=== PATIENT | female | born 1950 | race Caucasian/White ===

== ENCOUNTER 2017-12-16 08:55 | Emergency (ER) | payer MEDICARE ==
--- NOTE | 2017-12-16 09:17 | ER Document Report ---
ED Medical Screen (RME) - General Chief Complaint: Urinary Problem Stated Complaint: PAINFUL URINATION Time Seen by Provider: 12/16/17 09:12 Mode of Arrival: Wheelchair Information source: Patient TRAVEL OUTSIDE OF THE [place] IN LAST 30 DAYS: No - HPI Patient complains to provider of: hematuria Onset: Yesterday - pt. states she has had blood in her urine and dysuria since yesterday - Related Data Allergies/Adverse Reactions: latex Allergy (Intermediate, Verified 12/16/17 09:10) Penicillins Allergy (Unknown, Verified 12/16/17 09:09) Sulfa (Sulfonamide Antibiotics) Allergy (Unknown, Verified 12/16/17 09:09) Past Medical History - Social History Chew tobacco use (# tins/day): No Frequency of alcohol use: None Drug Abuse: None Family history: Reviewed & Not Pertinent - Past Medical History Cardiac Medical History: Reports: Hx DVT, Hx Hypertension, Hx Pulmonary Embolism Renal/ Medical History: Denies: Hx Peritoneal Dialysis Psychiatric Medical History: Reports: Hx Bipolar Disorder, Hx Depression Past Surgical History: Reports: Hx Cholecystectomy, Hx Hysterectomy, Hx Orthopedic Surgery - hip replacement 2009, left arm. back x 3 - Immunizations Hx Diphtheria, Pertussis, Tetanus Vaccination: Yes Physical Exam - Vital signs Vitals: Temp Pulse Resp BP Pulse Ox 98.4 F 79 22 H 121/52 L 92 12/16/17 09:02 12/16/17 09:02 12/16/17 09:02 12/16/17 09:02 12/16/17 09:02 Course - Vital Signs Vital signs: Temp Pulse Resp BP Pulse Ox 98.4 F 79 22 H 121/52 L 92 12/16/17 09:02 12/16/17 09:02 12/16/17 09:02 12/16/17 09:02 12/16/17 09:02
--- NOTE | 2017-12-16 09:45 | ER Document Report ---
ED GI/ - General Chief Complaint: Urinary Problem Stated Complaint: PAINFUL URINATION Time Seen by Provider: 12/16/17 09:12 Mode of Arrival: Wheelchair Notes: 67-year-old female with past medical history as recorded who started last night to have some painful urination that was blood-tinged in the depends underwear. No complaints of nausea, vomiting, fevers, or back pain. Patient had a small kidney stone 1 in her past. Patient is accompanied by her family. TRAVEL OUTSIDE OF THE [place] IN LAST 30 DAYS: No - HPI Patient complains to provider of: Other - See above Onset: Other - See above Timing/Duration: Gradual Quality of pain: Burning Severity at maximum: Mild Severity in ED: Mild, None Pain Level: 0 Location: Other - See above Sexual history: Inactive Associated symptoms: Other - See above Exacerbated by: Other - See above Relieved by: Denies Similar symptoms previously: Yes Recently seen / treated by doctor: No - Related Data Allergies/Adverse Reactions: latex Allergy (Intermediate, Verified 12/16/17 09:10) Penicillins Allergy (Unknown, Verified 12/16/17 09:09) Sulfa (Sulfonamide Antibiotics) Allergy (Unknown, Verified 12/16/17 09:09) Past Medical History - General Information source: Patient - Social History Smoking Status: Never Smoker Chew tobacco use (# tins/day): No Frequency of alcohol use: None Drug Abuse: None Family History: None Patient has suicidal ideation: No Patient has homicidal ideation: No - Past Medical History Cardiac Medical History: Reports: Hx DVT, Hx Hypertension, Hx Pulmonary Embolism Renal/ Medical History: Denies: Hx Peritoneal Dialysis Psychiatric Medical History: Reports: Hx Bipolar Disorder, Hx Depression Past Surgical History: Reports: Hx Cholecystectomy, Hx Hysterectomy, Hx Orthopedic Surgery - hip replacement 2009, left arm. back x 3 - Immunizations Hx Diphtheria, Pertussis, Tetanus Vaccination: Yes Hx Pneumococcal Vaccination: 10/23/14 Review of Systems - Review of Systems Constitutional: denies: Fever EENT: denies: Eye discharge, Nose discharge Cardiovascular: denies: Chest pain, Palpitations Respiratory: denies: Short of breath Gastrointestinal: denies: Vomiting Musculoskeletal: denies: Leg swelling Skin: Other - no hives. denies: Rash Neurological/Psychological: Other - no slurred speech -: Yes All other systems reviewed and negative Physical Exam - Vital signs Vitals: Temp Pulse Resp BP Pulse Ox 98.4 F 79 22 H 121/52 L 92 12/16/17 09:02 12/16/17 09:02 12/16/17 09:02 12/16/17 09:02 12/16/17 09:02 Notes: Reviewed vital signs and nursing note as charted by RN. CONSTITUTIONAL: Alert and oriented and responds appropriately to questions. Well -appearing; well-nourished HEAD: Normocephalic; atraumatic EYES: PERRL ENT: Moist mucous membranes; pharynx without lesions noted NECK: Supple without meningismus; non-tender CARD: Regular rate and rhythm; no murmurs RESP: Normal chest excursion without splinting or tachypnea; breath sounds clear and equal bilaterally ABD/GI: Normal bowel sounds; non-distended; soft, non-tender currently to deep palpation of all 4 quadrants of the abdomen. No abdominal bruits or palpable masses BACK: The back appears normal and is non-tender to palpation, there is no CVA tenderness EXT: Normal ROM in all joints; non-tender to palpation; no edema SKIN: No acute lesions noted NEURO: Moves all extremities equally; Motor and sensory function intact PSYCH: The patient's mood and manner are appropriate. Grooming and personal hygiene are appropriate. Course - Re-evaluation Re-evalutation: 12/16/17 09:44 Given the history and physical examination we will obtain basic labs, hemoglobin level, and a catheterized urine analysis. I would like to initially assess for possible urinary tract infection. Given no flank pain or vomiting, I do believe a kidney stone to be less likely. Family states for a few months now the patient has had some increased confusion above baseline. She is being followed by the primary care physician and has recently received an unremarkable CT scan of the head according to the family at an outside facility. Patient currently has no complaints of headaches and no focal neurological deficits. 12/16/17 10:37 Hemoglobin stable. Urinalysis as recorded. I provided a gram of Rocephin. Given the current sensitivities, I will start the patient on Keflex with urine culture pending. Strict return precautions have been explained. - Vital Signs Vital signs: Temp Pulse Resp BP Pulse Ox 98.4 F 79 22 H 121/52 L 92 12/16/17 09:02 12/16/17 09:02 12/16/17 09:02 12/16/17 09:02 12/16/17 09:02 - Laboratory Result Diagrams: 12/16/17 10:06 12/16/17 10:06 Laboratory results interpreted by me: 12/16/17 12/16/17 12/16/17 10:06 10:06 10:18 Plt Count 141 L Monocytes % 14.5 H Potassium 3.1 L Glucose 112 H AST 59 H Urine Protein >=500 H Urine Blood LARGE H Urine Bilirubin SMALL H Urine Urobilinogen 4.0 H Ur Leukocyte Esterase LARGE H Discharge - Discharge Clinical Impression: Hematuria Qualifiers: Hematuria type: unspecified type Qualified Code(s): R31.9 - Hematuria, unspecified Urinary tract infection Qualifiers: Urinary tract infection type: acute cystitis Hematuria presence: with hematuria Qualified Code(s): N30.01 - Acute cystitis with hematuria Condition: Good Disposition: HOME, SELF-CARE Instructions: Urinary Tract Infection ([facility]) Additional Instructions: Come back immediately with any increased pain, lightheadedness, dizziness, fever , back pain, vomiting, or any other acute problems. Please take the antibiotics as prescribed and please follow-up with your primary care physician for reassessment of the urine analysis as well as the urine culture. Prescriptions: Cephalexin Monohydrate [Keflex 500 mg Capsule] 500 mg PO Q6H 7 Days #28 capsule
[2017-12-16 10:14] LABS: ABSOLUTE EOSINOPHILS # (AUTO) 0.1 10^3/uL (0.0-0.6); ABSOLUTE MONOCYTES (AUTO) 0.9 10^3/uL (0.1-1.4); BASOPHILS % (AUTO) 0.8 % (0-2); EOSINOPHILS % (AUTO) 1.7 % (0-6); HEMATOCRIT 36.9 % (36.0-47.0); HEMOGLOBIN 12.8 g/dL (12.0-15.5); LYMPHOCYTES % (AUTO) 32.9 % (13-45); MEAN CORPUSCULAR HEMOGLOBIN 33.2 pg (27.0-33.4); MEAN CORPUSCULAR HGB CONC 34.6 g/dL (32.0-36.0); MEAN CORPUSCULAR VOLUME 96 fl (80-97); MONOCYTES % (AUTO) 14.5 % (3-13); PLATELET COUNT 141 10^3/uL (150-450); RED BLOOD COUNT 3.85 10^6/uL (3.72-5.28); RED CELL DISTRIBUTION WIDTH 13.5 % (11.5-14.0); SEGMENTED NEUTROPHILS % (AUTO) 50.1 % (42-78); TOTAL CELLS COUNTED % (AUTO) 100 %
[2017-12-16 10:30] LABS: ALANINE AMINOTRANSFERASE 24 U/L (9-52); ALBUMIN 3.7 g/dL (3.5-5.0); ALKALINE PHOSPHATASE 113 U/L (38-126); ANION GAP 13 (5-19); ASPARTATE AMINO TRANSFERASE 59 U/L (14-36); BILIRUBIN,DIRECT 0.4 mg/dL (0.0-0.4); BILIRUBIN,TOTAL 1.2 mg/dL (0.2-1.3); BLOOD UREA NITROGEN 18 mg/dL (7-20); CALCIUM 9.3 mg/dL (8.4-10.2); CARBON DIOXIDE 26 mmol/L (22-30); CHLORIDE 101 mmol/L (98-107); GLUCOSE 112 mg/dL (75-110); POTASSIUM 3.1 mmol/L (3.6-5.0); SODIUM 139.6 mmol/L (137-145); TOTAL PROTEIN 7.5 g/dL (6.3-8.2)
[2017-12-16 10:33] LABS: APPEARANCE,URINE CLOUDY; BILIRUBIN,URINE SMALL (NEGATIVE); COLOR,URINE AMBER; GLUCOSE, URINE NEGATIVE (NEGATIVE); KETONES,URINE NEGATIVE (NEGATIVE); LEUKOCYTE ESTERASE,URINE LARGE (NEGATIVE); NITRITE,URINE NEGATIVE (NEGATIVE); PROTEIN,URINE >=500 mg/dL (NEGATIVE); URINE SPECIFIC GRAVITY 1.024
[2017-12-16] MEDS ORDERED: CEFTRIAXONE 1 GM/D5W RTU 1 GM/50 ML RTUPB IV ONE (10:36)
[2017-12-16] MEDS ORDERED: CEFTRIAXONE INJ 1000 MG VIAL IM ONE (10:55)
[2017-12-16] MEDS ORDERED: LIDOCAINE 1% INJ (10 MG/ML) 10 ML MDV INJ ONE (10:59)
[2017-12-16] MEDS ORDERED: LIDOCAINE 1% INJ-PF (10 MG/ML) 30 ML SDV ONE (11:00)
[2017-12-16 11:11] VITALS: BP 120/64
== END 2017-12-16 11:11 | disposition home or self-care (01) ==
LOC: ER 08:55
DX: N30.01 Acute cystitis with hematuria (principal); I10 Essential (primary) hypertension; Z87.442 Personal history of urinary calculi; Z91.040 Latex allergy status; Z88.0 Allergy status to penicillin; Z88.2 Allergy status to sulfonamides
CPT/HCPCS: 99283; 96372; 51701; 36415; 87086; 85025; 87088; 80053; 81001; 87186; J3490; J0696

== ENCOUNTER 2018-01-12 13:22 | Emergency (ER) | payer MEDICARE ==
[2018-01-12] MEDS ORDERED: ACETAMINOPHEN WITH CODEINE #3 TABLET PO ONE (14:13)
--- NOTE | 2018-01-12 14:13 | ER Document Report ---
ED Medical Screen (RME) - General Chief Complaint: Fall Injury Stated Complaint: FALL/LEG PAIN Time Seen by Provider: 01/12/18 14:03 Mode of Arrival: Wheelchair Information source: Patient, Relative Notes: 67-year-old female history of multiple falls presents with complaints of left hip pain, it is noted that it was replaced 10 years ago patient fell recently has been complaining of pain I have greeted and performed a rapid initial assessment of this patient. A comprehensive ED assessment and evaluation of the patient, analysis of test results and completion of the medical decision making process will be conducted by additional ED providers. PHYSICAL EXAMINATION: GENERAL: Well-appearing, well-nourished and in no acute distress. HEAD: Atraumatic, normocephalic. EYES: Pupils equal round extraocular movements intact, conjunctiva are normal. ENT: Nares patent NECK: Normal range of motion LUNGS: No respiratory distress Musculoskeletal: Limited range of motion of left hip NEUROLOGICAL: Normal speech PSYCH: Normal mood, normal affect. SKIN: Warm, Dry, normal turgor, no rashes or lesions noted. TRAVEL OUTSIDE OF THE [place] IN LAST 30 DAYS: No - Related Data Allergies/Adverse Reactions: latex Allergy (Intermediate, Verified 01/12/18 13:26) Penicillins Allergy (Unknown, Verified 01/12/18 13:26) Sulfa (Sulfonamide Antibiotics) Allergy (Unknown, Verified 01/12/18 13:26) Past Medical History - Social History Frequency of alcohol use: None Drug Abuse: None Family history: Reviewed & Not Pertinent - Past Medical History Cardiac Medical History: Reports: Hx DVT, Hx Hypertension, Hx Pulmonary Embolism Renal/ Medical History: Denies: Hx Peritoneal Dialysis Psychiatric Medical History: Reports: Hx Bipolar Disorder, Hx Depression Past Surgical History: Reports: Hx Cholecystectomy, Hx Hysterectomy, Hx Orthopedic Surgery - hip replacement 2009, left arm. back x 3 - Immunizations Hx Diphtheria, Pertussis, Tetanus Vaccination: Yes Physical Exam - Vital signs Vitals: Temp Pulse Resp BP Pulse Ox 98.2 F 80 20 121/50 L 95 01/12/18 13:36 01/12/18 13:36 01/12/18 13:36 01/12/18 13:36 01/12/18 13:36 Course - Vital Signs Vital signs: Temp Pulse Resp BP Pulse Ox 98.2 F 80 20 121/50 L 95 01/12/18 13:36 01/12/18 13:36 01/12/18 13:36 01/12/18 13:36 01/12/18 13:36
--- NOTE | 2018-01-12 15:19 | ER Document Report ---
ED Fall - General Mode of Arrival: Wheelchair Information source: Patient, Relative TRAVEL OUTSIDE OF THE [place] IN LAST 30 DAYS: No - HPI Patient complains to provider of: Left hip pain secondary to fall Occurred: Yesterday Where: Home, Indoors Associated symptoms: Other - see notes above Location of injury/pain: Hip - left <ROSALINE MCDUFFIE - Last Filed: 01/12/18 18:21> <DEANNE WARD - Last Filed: 01/12/18 21:05> - General Chief Complaint: Fall Injury Stated Complaint: FALL/LEG PAIN Time Seen by Provider: 01/12/18 14:03 Notes: 67 year old female with history of progressive supranuclear palsy presents to the ED accompanied by her who is complaining that the patient has been having increased falls and some confusion since September 2017. Patient was seen by Dr. Horton, her PCP, who initially treated the patient for vertigo and later had her follow up with neurology. Patient fell yesterday and began complaining of left hip pain. Patient has ambulated since the fall and her level of confusion has not changed. Patient is currently on Pradaxa secondary to having blood clots many years ago. Neurologist: Dr. Patel (ROSALINE MCDUFFIE) - Related data Allergies/Adverse Reactions: latex Allergy (Intermediate, Verified 01/12/18 13:26) Penicillins Allergy (Unknown, Verified 01/12/18 13:26) Sulfa (Sulfonamide Antibiotics) Allergy (Unknown, Verified 01/12/18 13:26) Past Medical History - General Information source: Patient, Relative - Social History Smoking Status: Never Smoker Frequency of alcohol use: None Drug Abuse: None Family History: None Patient has suicidal ideation: No Patient has homicidal ideation: No - Past Medical History Cardiac Medical History: Reports: Hx DVT, Hx Hypertension, Hx Pulmonary Embolism Renal/ Medical History: Denies: Hx Peritoneal Dialysis Psychiatric Medical History: Reports: Hx Bipolar Disorder, Hx Depression Past Surgical History: Reports: Hx Cholecystectomy, Hx Hysterectomy, Hx Orthopedic Surgery - hip replacement 2008, left arm. back x 3 - Immunizations Hx Diphtheria, Pertussis, Tetanus Vaccination: Yes Hx Pneumococcal Vaccination: 10/23/14 <ROSALINE MCDUFFIE - Last Filed: 01/12/18 18:21> Review of Systems - Review of Systems Constitutional: No symptoms reported EENT: No symptoms reported Musculoskeletal: See HPI Neurological/Psychological: Confusion - Baseline per . -: Yes All other systems reviewed and negative <DEANNE WARD - Last Filed: 01/12/18 21:05> Physical Exam <ROSALINE MCDUFFIE - Last Filed: 01/12/18 18:21> <DEANNE WARD - Last Filed: 01/12/18 21:05> - Vital signs Vitals: Temp Pulse Resp BP Pulse Ox 98.2 F 80 20 121/50 L 95 01/12/18 13:36 01/12/18 13:36 01/12/18 13:36 01/12/18 13:36 01/12/18 13:36 - Notes Notes: GENERAL: Alert, interacts well. No acute distress. HEAD: Normocephalic, atraumatic. EYES: Pupils equal, round, and reactive to light. Extraocular movements intact. ENT: Oral mucosa moist, tongue midline. NECK: Full range of motion. Supple. Trachea midline. LUNGS: Clear to auscultation bilaterally, no wheezes, rales, or rhonchi. No respiratory distress. HEART: Regular rate and rhythm. No murmurs, gallops, or rubs. ABDOMEN: Soft, non-tender. Non-distended. Bowel sounds present in all 4 quadrants. EXTREMITIES: Moves all 4 extremities spontaneously. No edema, radial, and dorsalis pedis pulses 2/4 bilaterally. No cyanosis. Well healed incision to the left lower extremity. No tenderness to palpation over the left greater trochanter. No swelling or ecchymosis. No pain with log roll to the left lower extremity. Pain with elevation of left lower extremity. No shortening or rotation. Sensation intact distally. Able to bend at waist. NEUROLOGICAL: Alert. Normal speech. At baseline according to . PSYCH: Normal affect, normal mood. SKIN: Warm, dry, and normal turgor. No rashes or lesions noted. (ROSALINE MCDUFFIE) Pleasant, oriented to person and place but not time. Thinks Mark Gutierrez is still present. (DEANNE WARD) Course - Laboratory Result Diagrams: 01/12/18 15:27 01/12/18 15:27 <ROSALINE MCDUFFIE - Last Filed: 01/12/18 18:21> - Laboratory Result Diagrams: 01/12/18 15:27 01/12/18 15:27 <DEANNE WARD - Last Filed: 01/12/18 21:05> - Re-evaluation Re-evalutation: 01/12/18 17:16 X-ray shows that the patient is osteoporotic, on the frog-leg view there is some heterotopic bone along the proximal left femoral metaphysis but there is no fracture and no lucency around the prosthesis worrisome for loosening of hardware. Patient is encouraged to follow-up with her primary care physician to see if she can stop taking the dabigatran. Given her falls this causes a significantly increased risk of intracranial hemorrhage. (DEANNE WARD) - Vital Signs Vital signs: Temp Pulse Resp BP Pulse Ox 98.7 F 73 18 109/54 L 92 01/12/18 18:43 01/12/18 18:43 01/12/18 18:43 01/12/18 18:43 01/12/18 18:43 - Laboratory Laboratory results interpreted by me: 01/12/18 01/12/18 15:27 15:27 Plt Count 112 L Sodium 134.6 L Potassium 3.4 L Total Bilirubin 2.3 H Direct Bilirubin 1.0 H AST 64 H Albumin 3.3 L Discharge <ROSALINE MCDUFFIE - Last Filed: 01/12/18 18:21> <DEANNE WARD - Last Filed: 01/12/18 21:05> - Discharge Clinical Impression: Left hip pain Fall at home Qualifiers: Encounter type: initial encounter Qualified Code(s): W19.XXXA - Unspecified fall, initial encounter Condition: Stable Disposition: HOME, SELF-CARE Additional Instructions: Today there is no evidence of a hip fracture. Please follow-up with your primary care physician as an outpatient. Please specifically ask if you can stop taking the dabigatran, this is also called Pradaxa, it is a blood thinner that significantly increases your risk of bleeding into your brain should you hit your head when you fall. Your primary care physician will need to talk to you about the risks of bleeding as compared to the risks of developing another blood clot. Do not stop taking this medication on your own. Referrals: HOMA DE LA TORRE MD [Primary Care Provider] - Follow up as needed Scribe Attestation: 01/12/18 21:04 I personally performed the services described in the documentation, reviewed and edited the documentation which was dictated to the scribe in my presence, and it accurately records my words and actions. (DEANNE WARD) Scribe Documentation - Scribe Written by Jorge Luis:: Jorge Luis Mccain, 01/12/2018 1829 acting as scribe for :: Queenie <ROSALINE MCDUFFIE - Last Filed: 01/12/18 18:21>
[2018-01-12 15:44] LABS: ABSOLUTE EOSINOPHILS # (AUTO) 0.1 10^3/uL (0.0-0.6); ABSOLUTE LYMPHOCYTES (AUTO) 2.7 10^3/uL (0.5-4.7); ABSOLUTE MONOCYTES (AUTO) 0.8 10^3/uL (0.1-1.4); ABSOLUTE NEUT (AUTO) 3.5 10^3/uL (1.7-8.2); BASOPHILS % (AUTO) 0.7 % (0-2); EOSINOPHILS % (AUTO) 1.4 % (0-6); HEMATOCRIT 37.9 % (36.0-47.0); LYMPHOCYTES % (AUTO) 37.7 % (13-45); MEAN CORPUSCULAR HEMOGLOBIN 33.1 pg (27.0-33.4); MEAN CORPUSCULAR HGB CONC 34.2 g/dL (32.0-36.0); MEAN CORPUSCULAR VOLUME 97 fl (80-97); MONOCYTES % (AUTO) 11.1 % (3-13); PLATELET COUNT 112 10^3/uL (150-450); RED BLOOD COUNT 3.91 10^6/uL (3.72-5.28); RED CELL DISTRIBUTION WIDTH 13.5 % (11.5-14.0); SEGMENTED NEUTROPHILS % (AUTO) 49.1 % (42-78); TOTAL CELLS COUNTED % (AUTO) 100 %
[2018-01-12 16:01] LABS: ALANINE AMINOTRANSFERASE 23 U/L (9-52); ALBUMIN 3.3 g/dL (3.5-5.0); ALKALINE PHOSPHATASE 111 U/L (38-126); ANION GAP 10 (5-19); ASPARTATE AMINO TRANSFERASE 64 U/L (14-36); BILIRUBIN,TOTAL 2.3 mg/dL (0.2-1.3); BLOOD UREA NITROGEN 15 mg/dL (7-20); CARBON DIOXIDE 24 mmol/L (22-30); CHLORIDE 101 mmol/L (98-107); GLUCOSE 92 mg/dL (75-110); POTASSIUM 3.4 mmol/L (3.6-5.0); SODIUM 134.6 mmol/L (137-145); TOTAL PROTEIN 7.7 g/dL (6.3-8.2)
--- NOTE | 2018-01-12 17:06 | RADIOLOGY REPORT (SQ) ---
EXAM DESCRIPTION: HIP LEFT 2-3 VIEWS COMPLETED DATE/TIME: 01/12/2018 3:17 pm REASON FOR STUDY: fall, left hip only COMPARISON: None. NUMBER OF VIEWS: Two views. TECHNIQUE: AP and frog-leg view of the left hip. LIMITATIONS: None. FINDINGS: MINERALIZATION: Osteoporotic LEFT HIP: No fracture or dislocation. Patient has a left total hip replacement with acetabular compo nent anchored with screws. On the frog-leg view, there is some heterotopic bone along the proximal l eft femoral metaphysis. No fracture of the left proximal femur along the prosthesis. No lucency jennifer und the prosthesis worrisome for loosening of hardware. RIGHT HIP: No fracture or dislocation. No worrisome bone lesions. SOFT TISSUES: No findings. OTHER: Lower lumbar fusion IMPRESSION: Osteopenic. No left hip fracture. Left hip replacement in good alignment. TECHNICAL DOCUMENTATION: JOB ID: [id number] [employer]- All Rights Reserved Reading location - IP/workstation name: [email or web address]
[2018-01-12 18:51] VITALS: BP 109/54
== END 2018-01-12 18:51 | disposition home or self-care (01) ==
LOC: ER 13:22
DX: M25.552 Pain in left hip (principal); W19.XXXA Unspecified fall, initial encounter; Y92.009 Unspecified place in unspecified non-institutional (private) residence as the place of occurrence of the external cause; I10 Essential (primary) hypertension; Z91.040 Latex allergy status; Z88.0 Allergy status to penicillin; Z88.2 Allergy status to sulfonamides; Z86.718 Personal history of other venous thrombosis and embolism; Z86.711 Personal history of pulmonary embolism; Z90.49 Acquired absence of other specified parts of digestive tract; Z90.710 Acquired absence of both cervix and uterus
CPT/HCPCS: 99283; 36415; 85025; 80053; 73502; A9270

== ENCOUNTER → 2018-04-26 | Outpatient (CLI) | payer MEDICARE ==
--- NOTE | 2018-04-26 10:23 | ST Modified Barium Swallow ---
Recommendation - Recommendations Recommendations: Recommend no straws. Flash penetration noted on thin liquids via straw sips only. 3-4 second swallow delay noted on solid PO trials. No diet change recommendations at this time. Medical Diagnoses - Medical Diagnoses Medical Diagnosis Description & ICD-10 Code(s): R13.13, pharyngeal dysphagia Other Medical Diagnoses/Co-Morbidities: Per patient report: Alzheimers disease. Per physician note: progressive supranuclear palsy. ST Modified Barium Swallow - General Date: 04/26/18 Risks/Precautions: Falls Date of Onset: 03/15/18 - Approximate onset date, per patient report. Reason for Referral: Recurrent pneumonia. Occasional globus sensation. - History History obtained from: Patient -: Medical - Patient reports she was diagnosed with progressive supranuclear palsy 6 weeks ago. Patient reports pneumonia 2 weeks ago, and again 5 weeks prior; pneumonia is recurrent. Patient reports occasional globus sensation, and avoids soups. Patient reports a diagnosis of alzheimers disease and a previous shoulder surgery; unable to report any other relevant medical history. Medications: Patient unable to report medications. Allergies: Per patient report: penicillin and sulfa - Functional Status Prior Functional Status: INDEPENDENT: feeding - Independent Current Functional Limitations: feeding - Aspiration precautions - Subjective Patient/caregiver goal(s): safe swallow, r/o aspiration Cognitive-Linguistic Function: Mildly Impaired Speech Intelligibility: Reduced intelligibility Current Nutritional Means: PO Current PO diet: Regular Current symptoms: Pneumonia, c/o Globus sensation Pain: Patient reports, 0/5 - Objective Assessment: Upright, Left Lateral - Food Trials Used Food trials used: Thin liquids, Pureed, Regular The patient: Was Able to Self Feed, via cup, via spoon - Oral-Motor Skills Dentition: Partial - Assessment Oral prep: Normal Labial closure: Adequate Leakage: None Mastication: Lengthy, Adequate Lingual Movement: Normal Oral stage: Normal for this Procedure - Pharyngeal Stage Initiation of Pharyngeal Stage Reflex: Delayed Reflex Delay Time (Seconds): 4 - With solid trials only Decreased laryngeal elevation: No Reduced Velopharyngeal Closure: no Reduced pressure generation: No reduced tongue-based retraction: No Pre-swallow pooling in valleculae: Moderate - For solid trials only Pre-Swallow pooling in pyriforms: None Reduced Thyro-Hyoid approximation: No Reduced epiglottic excursion: No Reduced pharyngeal peristalsis/contraction: No Post-swallow residulas vallecular: None Post-Swallow residuals in pyriforms: None Post-Swallow Residuals: no residuals Reduced Cricopharyngeal opening: No - Fall Risk Assessment Medications/Conditions that increase fall risks include: Antidepressants, sedatives, anti-arrhythmic, diuretic, benzodiazipenes, neuroleptics. BP regulation problems, cardiac problems, balance or gait deficits, neurological problems. Is patient considered at risk for falls: yes Fall Risk Actions Taken: No action needed - Behavioral Observations During evaluation process patient: was cooperative, able to answer questions, provided medical history - Treatment / Educational Needs: Treatment/Education Needs: Treatment consisted of patient education on the role of the Speech Pathologist. Patient's plan of care and golas were communicated as well as scheduling and attendance policies. Recommendations for initial home program were shared. Patient demonstrated understanding and verbalized agreement. - Impression/Summary Laryngeal Penetration: Flash, during swallow Consistency: Thin - With straw sips only Tracheal Aspiration: no Patient presents with: Normal swallow at eval Risk of Aspiration: Minimal Risk of nutritional compromise: None Evaluation and Findings: PO trials of thin liquids, pureed and regular consistency administered. No penetration or aspiration noted on thin liquids via cup sips; flash penetration noted on thin liquids via straw. With pureed and solid consistencies, patient demonstrated up to 4-second delay in swallow initiation. Moderate pre-swallow pooling in the valeculae noted with solid trials. Patient was able to clear all material with a single swallow; no dry swallow or liquid wash needed. Recommend no diet changes, but for patient to avoid use of straws. - Recommendations NPO: no Solid diet recommendations: Regular Liquid Diet Modification: Thin - No straws Strict aspiration precautions: No Pt/Family education and followup with MD: Yes Dysphagia therapy with [employer]IA [employer]ANNER: no Recommended techniques: Fully Upright During Meal, Small Bites and Sips, Alternate Bites/Sips Supervision: Independent Information, Precautions and Recommendations: Patient (Written), Patient (Verbal ) - Time Total Time: 30 - Plan of Care Strategies to optimize patient understanding include:: ongoing assessment of educational needs, implementation of educational strategies, and re-education. - - -: Thank you for the opportunity to work with this patient and his/her family. Should you have any questions about this patient's plan or progress, I can be reached at [phone]. Charge G Code? - - -: Yes ST F.L. Impairment Category - Rationale Based On Rationale Based On: Clin Find., Obj Measures - Swallowing Current G8996: CI 1-19% Impaired Goal G8997: CI 1-19% Impaired Discharge G8998: CI 1-19% Impaired
--- NOTE | 2018-04-26 10:32 | RADIOLOGY REPORT (SQ) ---
EXAM DESCRIPTION: ROBERTAIE SWALLOW COMPLETED DATE/TIME: 04/26/2018 8:23 am REASON FOR STUDY: DYSPHAGIA (R13.13) R13.13 DYSPHAGIA, PHARYNGEAL PHASE recurrent pneumonias, cough ing with meals COMPARISON: None. TECHNIQUE: Videofluoroscopic swallowing examination was performed in conjunction with speech patholo gy. Videofluoroscopic imaging was obtained and reviewed and these are the findings: RADIATION DOSE: 1 minutes 29 seconds of fluoroscopy was used. 1 images saved to PACS. LIMITATIONS: None FINDINGS: The patient was brought into the fluoro room and placed upright on a modified barium swall ow chair. The patient was then given multiple consistencies mixed with barium to swallow under live fluoroscopic video guidance. According to the Speech Pathologist there was trace laryngeal penetrati on. No aspiration. IMPRESSION: TRACE LARYNGEAL PENETRATION WITH THIN LIQUIDS. NO ASPIRATION SEEN.PLEASE SEE SPEECH PAT HOLOGIST REPORT FOR OTHER FINDINGS AND RECOMMENDATIONS. COMMENT: Quality ID [id number]: Final reports for procedures using fluoroscopy that document radiation exp osure indices, or exposure time and number of fluorographic images (if radiation exposure indices are not available) TECHNICAL DOCUMENTATION: JOB ID: [id number] [employer]- All Rights Reserved Reading location - IP/workstation name: [email or web address]
== END ==
LOC: RAD 07:10
PROVIDERS: ATTEND Nurse Practitioner
DX: R13.13 Dysphagia, pharyngeal phase (principal); G23.1 Progressive supranuclear ophthalmoplegia [Steele-Richardson-Olszewski]; G30.9 Alzheimer's disease, unspecified; F02.80 Dementia in other diseases classified elsewhere, unspecified severity, without behavioral disturbance, psychotic disturbance, mood disturbance, and anxiety
CPT/HCPCS: 74230; 92611; G8996; G8997; G8998

== ENCOUNTER 2018-08-15 17:17 | Emergency (ER) | payer MEDICARE ==
[~2018-08-15 17:17] MED LIST: ETOMIDATE INJ/PF 20 MG/10 ML SDV IV ONE; PROPOFOL 1,000 MG/100 ML INFUS..BTL IV ONE
[2018-08-15] MEDS ORDERED: NORMAL SALINE 1000 ML 1,000 ML IV ONE ×2 (17:26→18:31)
[2018-08-15] MEDS ORDERED: ETOMIDATE INJ/PF 20 MG/10 ML SDV IV ONE (17:28)
[2018-08-15] MEDS ORDERED: ROCURONIUM BROMIDE INJ 50 MG/5 ML VIAL IV ONE ×2 (17:29→18:01)
--- NOTE | 2018-08-15 17:29 | ER Document Report ---
ED General - General Stated Complaint: POSSIBLE SEIZURE Time Seen by Provider: 08/15/18 17:26 Notes: Patient is a 67-year-old female that presents to the emergency department for chief complaint of seizure. Patient is unresponsive upon presentation, history provided by EMS, patient apparently had a tonic-clonic generalized seizure, lasting approximately up to 10-15 minutes, upon arrival she was given 4 mg of intranasal Versed, without stoppage of the seizure, she was then given 2 mg of IV Ativan, which stopped the tonic-clonic activity, the patient then was unresponsive. She was transported to the emergency department, no other history obtainable at this time. Family History: Reviewed and noncontributory for presenting illness Allergies: Reviewed, see documented allergy list. REVIEW OF SYSTEMS: Not obtainable at this time as the patient is unresponsive PHYSICAL EXAMINATION: Vital signs reviewed, nursing noted reviewed. GENERAL: Patient is unresponsive at this time, GCS of 7. HEAD: Atraumatic, normocephalic. EYES: Pupils are equal and reactive, patient not following commands, horizontal nystagmus noted bilaterally ENT: nares patent, oropharynx clear without exudates. Moist mucous membranes. NECK: Normal range of motion, supple without lymphadenopathy LUNGS: Shallow breathing, agonal breathing, lungs are clear to auscultation bilaterally HEART: Regular rate and rhythm without murmurs ABDOMEN: Soft, not apparently tender, normoactive bowel sounds. No rebound, guarding, or rigidity. No masses appreciated. EXTREMITIES: No spontaneous limb movement at this time, slight trace edema noted bilaterally in the lower extremities NEUROLOGICAL: GCS 7, not following commands, will withdrawal to noxious stimuli PSYCH: Unresponsive SKIN: Warm, Dry, normal turgor, no rashes or lesions noted on exposed skin TRAVEL OUTSIDE OF THE [place] IN LAST 30 DAYS: No - Related Data Allergies/Adverse Reactions: latex Allergy (Intermediate, Verified 08/15/18 18:23) Penicillins Allergy (Unknown, Verified 08/15/18 18:23) Sulfa (Sulfonamide Antibiotics) Allergy (Unknown, Verified 08/15/18 18:23) Past Medical History - Social History Smoking Status: Unknown if Ever Smoked Family History: None - Past Medical History Cardiac Medical History: Reports: Hx DVT, Hx Hypertension, Hx Pulmonary Embolism Renal/ Medical History: Denies: Hx Peritoneal Dialysis Psychiatric Medical History: Reports: Hx Bipolar Disorder, Hx Depression Past Surgical History: Reports: Hx Cholecystectomy, Hx Hysterectomy, Hx Orthopedic Surgery - hip replacement 2009, left arm. back x 3 - Immunizations Hx Diphtheria, Pertussis, Tetanus Vaccination: Yes Hx Pneumococcal Vaccination: 10/23/14 Physical Exam - Vital signs Vitals: Resp Pulse Ox 21 H 95 08/15/18 17:20 08/15/18 17:20 Course - Re-evaluation Re-evalutation: Patient seen and examined vital signs reviewed. Upon arrival the patient was unresponsive, GCS of 7, airway was protected, patient was intubated, using video laryngoscopy, patient vital signs stable throughout intubation, post intubation., Patient was placed on propofol infusion, patient was waking up in the ventilator over time, moving limbs, and seeming more purposeful. Laboratory data and imaging were ordered as appropriate for the patient's presenting symptoms and complaint, with consideration of any critical or life threatening conditions that may be associated with their obtained history and exam as noted above. Blood work was reviewed, patient's lactic acid was 9.5, suspected from her prolonged seizure activity, and not sepsis. Given IV fluids, continued on propofol infusion The patient was re-evaluated and was stable on the ventilator, no further seizure activity, she was moving limbs Evaluation was most consistent with status epilepticus, acute respiratory failure, lactic acidosis Results were discussed with the patient family at this point after careful consideration I feel that that patient should be transferred to [facility] due to need for neurology evaluation, and neuro ICU evaluation. This was discussed with the patient family that it is in the best interest for their care to be transferred, the risks and benefits of transfer were discussed, including but not limited to clinical deterioration during transport, respiratory distress, and potential for traumatic injuries. Patient family agreed with this plan of care. Case discussed with Dr. Mosquera, the rail setter who accepted the patient to their ICU. Air transport arrived to take the patient to [facility] , signout given, patient was successfully transported to the stretcher, on the ventilator, without complication. *Note is created using voice recognition software and may contain spelling, syntax or grammatical errors. Laboratory 08/15/18 08/15/18 08/15/18 17:25 17:25 17:25 WBC 9.8 RBC 3.19 L Hgb 11.4 L Hct 33.5 L MCV 105 H MCH 35.7 H MCHC 33.9 RDW 14.2 H Plt Count 113 L Seg Neutrophils % 71.1 Lymphocytes % 15.4 Monocytes % 12.4 Eosinophils % 0.5 Basophils % 0.6 Absolute Neutrophils 7.0 Absolute Lymphocytes 1.5 Absolute Monocytes 1.2 Absolute Eosinophils 0.1 Absolute Basophils 0.1 PT 19.8 H INR 1.60 APTT 34.5 Sodium 135.0 L Potassium 3.3 L Chloride 99 Carbon Dioxide 16 L Anion Gap 20 H BUN 22 H Creatinine 0.86 Est GFR ( Amer) > 60 Est GFR (Non-Af Amer) > 60 Glucose 97 Lactic Acid Calcium 8.4 Total Bilirubin 3.6 H Direct Bilirubin 1.4 H Neonat Total Bilirubin Not Reportable Neonat Direct Bilirubin Not Reportable Neonat Indirect Bili Not Reportable AST 93 H ALT 16 Alkaline Phosphatase 94 Ammonia Troponin I Total Protein 8.1 Albumin 3.4 L Urine Color Urine Appearance Urine pH Ur Specific Logan Urine Protein Urine Glucose (UA) Urine Ketones Urine Blood Urine Nitrite Urine Bilirubin Urine Urobilinogen Ur Leukocyte Esterase Urine WBC (Auto) Urine RBC (Auto) U Hyaline Cast (Auto) Squamous Epi Cells Auto Urine Mucus (Auto) Urine Ascorbic Acid 08/15/18 08/15/18 08/15/18 17:25 17:25 18:27 WBC RBC Hgb Hct MCV MCH MCHC RDW Plt Count Seg Neutrophils % Lymphocytes % Monocytes % Eosinophils % Basophils % Absolute Neutrophils Absolute Lymphocytes Absolute Monocytes Absolute Eosinophils Absolute Basophils PT INR APTT Sodium Potassium Chloride Carbon Dioxide Anion Gap BUN Creatinine Est GFR ( Amer) Est GFR (Non-Af Amer) Glucose Lactic Acid 9.5 H Calcium Total Bilirubin Direct Bilirubin Neonat Total Bilirubin Neonat Direct Bilirubin Neonat Indirect Bili AST ALT Alkaline Phosphatase Ammonia Troponin I 0.014 Total Protein Albumin Urine Color YELLOW Urine Appearance CLEAR Urine pH 5.0 Ur Specific Logan 1.023 Urine Protein NEGATIVE Urine Glucose (UA) NEGATIVE Urine Ketones TRACE H Urine Blood NEGATIVE Urine Nitrite NEGATIVE Urine Bilirubin NEGATIVE Urine Urobilinogen 4.0 H Ur Leukocyte Esterase NEGATIVE Urine WBC (Auto) 3 Urine RBC (Auto) 0 U Hyaline Cast (Auto) 6 Squamous Epi Cells Auto <1 Urine Mucus (Auto) FEW Urine Ascorbic Acid NEGATIVE 08/15/18 18:55 WBC RBC Hgb Hct MCV MCH MCHC RDW Plt Count Seg Neutrophils % Lymphocytes % Monocytes % Eosinophils % Basophils % Absolute Neutrophils Absolute Lymphocytes Absolute Monocytes Absolute Eosinophils Absolute Basophils PT INR APTT Sodium Potassium Chloride Carbon Dioxide Anion Gap BUN Creatinine Est GFR ( Amer) Est GFR (Non-Af Amer) Glucose Lactic Acid Calcium Total Bilirubin Direct Bilirubin Neonat Total Bilirubin Neonat Direct Bilirubin Neonat Indirect Bili AST ALT Alkaline Phosphatase Ammonia 41.5 H Troponin I Total Protein Albumin Urine Color Urine Appearance Urine pH Ur Specific Logan Urine Protein Urine Glucose (UA) Urine Ketones Urine Blood Urine Nitrite Urine Bilirubin Urine Urobilinogen Ur Leukocyte Esterase Urine WBC (Auto) Urine RBC (Auto) U Hyaline Cast (Auto) Squamous Epi Cells Auto Urine Mucus (Auto) Urine Ascorbic Acid KUB X-Ray 08/15/18 00:00 IMPRESSION: Oral gastric tube placement as described. Chest X-Ray 08/15/18 17:27 IMPRESSION: Support lines and tubes are in satisfactory position. Lung arrington are clear. Head CT 08/15/18 17:27 IMPRESSION: NORMAL BRAIN CT WITHOUT CONTRAST. EVIDENCE OF ACUTE STROKE: NO. - Vital Signs Vital signs: Temp Pulse Resp BP Pulse Ox 13 122/53 L 97 08/15/18 20:31 08/15/18 20:31 08/15/18 20:31 - Laboratory Result Diagrams: 08/15/18 17:25 08/15/18 17:25 Laboratory results interpreted by me: 08/15/18 08/15/18 08/15/18 17:25 17:25 17:25 RBC 3.19 L Hgb 11.4 L Hct 33.5 L MCV 105 H MCH 35.7 H RDW 14.2 H Plt Count 113 L PT 19.8 H Sodium 135.0 L Potassium 3.3 L Carbon Dioxide 16 L Anion Gap 20 H BUN 22 H Lactic Acid Total Bilirubin 3.6 H Direct Bilirubin 1.4 H AST 93 H Ammonia Albumin 3.4 L Urine Ketones Urine Urobilinogen 08/15/18 08/15/18 08/15/18 17:25 18:27 18:55 RBC Hgb Hct MCV MCH RDW Plt Count PT Sodium Potassium Carbon Dioxide Anion Gap BUN Lactic Acid 9.5 H Total Bilirubin Direct Bilirubin AST Ammonia 41.5 H Albumin Urine Ketones TRACE H Urine Urobilinogen 4.0 H - EKG Interpretation by Me Additional EKG results interpreted by me: EKG demonstrates sinus rhythm with a ventricular rate of 70 bpm, normal axis, QTC 511 ms, there is slight T wave inversion in lead III, no ST changes, is compared with prior EKG from 06/29/2016, without significant change. Procedures - Intubation Orotracheal Airway evaluation: Normal anatomy - Dentures removed Mallampati Classification: Class 1 Medications: Etomidate - 20mg, Other - Rocuronium 50mg Intubation method: Orotracheal Blade size: 4 Equipment used: Glidescope ETT size: 7.5 ETT secured at: Gums ETT secured at (cm): 23 Breath Sounds after Intubation: Equal End tidal CO2 confirmed: Yes Ventilator settings: SIMV FiO2: 40 Respirations: 12 Pressure support: 10 PEEP: 5 Post Intubation Xray: Yes - ETT in good position Intubation Complications: No complications Critical Care Note - Critical Care Note Total time excluding time spent on procedures (mins): 80 Comments: Critical care time 80 minutes exclusive from separate billable procedures for a patient requiring complex medical decision making, and high potential for clinical deterioration. In a patient with status epilepticus, requiring frequent re-evaluations, multiple phone calls, discussion with specialists. Time spent obtaining history from patient or surrogate, discussions with consultants, development of treatment plan with patient or surrogate, evaluation of patient's response to treatment, examination of patient, ordering and performing treatments and interventions, ordering and review of laboratory studies, re-evaluation of patient's condition, ordering and review of radiographic studies and review of old charts Discharge - Discharge Clinical Impression: Status epilepticus, Lactic acidosis, Hyperammonemia Acute respiratory failure Qualifiers: Respiratory failure complication: unspecified whether with hypoxia or hypercapnia Qualified Code(s): J96.00 - Acute respiratory failure, unspecified whether with hypoxia or hypercapnia Condition: Serious Disposition: [facility] Referrals: DOMINGO MIMS, ANP-C [NO LOCAL MD] - Follow up as needed
[2018-08-15] MEDS: PROPOFOL 1,000 MG/100 ML INFUS..BTL IV PRN ×2 (17:30→20:30)
[2018-08-15 17:49] LABS: ABSOLUTE BASOPHILS # (AUTO) 0.1 10^3/uL (0.0-0.2); ABSOLUTE EOSINOPHILS # (AUTO) 0.1 10^3/uL (0.0-0.6); ABSOLUTE LYMPHOCYTES (AUTO) 1.5 10^3/uL (0.5-4.7); ABSOLUTE MONOCYTES (AUTO) 1.2 10^3/uL (0.1-1.4); BASOPHILS % (AUTO) 0.6 % (0-2); EOSINOPHILS % (AUTO) 0.5 % (0-6); HEMATOCRIT 33.5 % (36.0-47.0); HEMOGLOBIN 11.4 g/dL (12.0-15.5); LYMPHOCYTES % (AUTO) 15.4 % (13-45); MEAN CORPUSCULAR HEMOGLOBIN 35.7 pg (27.0-33.4); MEAN CORPUSCULAR HGB CONC 33.9 g/dL (32.0-36.0); MEAN CORPUSCULAR VOLUME 105 fl (80-97); MONOCYTES % (AUTO) 12.4 % (3-13); PLATELET COUNT 113 10^3/uL (150-450); RED BLOOD COUNT 3.19 10^6/uL (3.72-5.28); RED CELL DISTRIBUTION WIDTH 14.2 % (11.5-14.0); SEGMENTED NEUTROPHILS % (AUTO) 71.1 % (42-78); TOTAL CELLS COUNTED % (AUTO) 100 %; WHITE BLOOD COUNT 9.8 10^3/uL (4.0-10.5)
[2018-08-15 17:55] LABS: PROTHROMBIN TIME 19.8 SEC (11.4-15.4)
--- NOTE | 2018-08-15 17:55 | RADIOLOGY REPORT (SQ) ---
EXAM DESCRIPTION: CT HEAD WITHOUT COMPLETED DATE/TIME: 08/15/2018 5:45 pm REASON FOR STUDY: seizure, unresponsive COMPARISON: 06/29/2016 TECHNIQUE: Axial images acquired through the brain without intravenous contrast. Images reviewed wi th bone, brain and subdural windows. Additional sagittal and coronal reconstructions were generated. Images stored on PACS. All CT scanners at this facility use dose modulation, iterative reconstruction, and/or weight based d osing when appropriate to reduce radiation dose to as low as reasonably achievable (ALARA). [facility]: Dose Right [facility]: CareDose [facility]: Dose Right [facility]: Teradose 4D [facility]: Smart Scandid RADIATION DOSE: CT Rad equipment meets quality standard of care and radiation dose reduction techniq ues were employed. CTDIvol: 53.2 mGy. DLP: 1044 mGy-cm. mGy. LIMITATIONS: None. FINDINGS: VENTRICLES: Normal size and contour. CEREBRUM: No masses. No hemorrhage. No midline shift. No evidence for acute infarction. Normal gra y/white matter differentiation. No areas of low density in the white matter. CEREBELLUM: No masses. No hemorrhage. No alteration of density. No evidence for acute infarction. EXTRAAXIAL SPACES: No fluid collections. No masses. ORBITS AND GLOBE: No intra- or extraconal masses. Normal contour of globe without masses. CALVARIUM: No fracture. PARANASAL SINUSES: No fluid or mucosal thickening. SOFT TISSUES: No mass or hematoma. OTHER: NG tube and endotracheal tube are in place. IMPRESSION: NORMAL BRAIN CT WITHOUT CONTRAST. EVIDENCE OF ACUTE STROKE: NO. COMMENT: Quality ID # [id number]: Final reports with documentation of one or more dose reduction techniques (e.g., Automated exposure control, adjustment of the mA and/or kV according to patient size, use of iterative reconstruction technique) TECHNICAL DOCUMENTATION: JOB ID: [id number] [employer]- All Rights Reserved Reading location - IP/workstation name: [email or web address]
[2018-08-15 17:56] LABS: PARTIAL THROMBOPLASTIN TIME 34.5 SEC (23.5-35.8)
--- NOTE | 2018-08-15 18:04 | RADIOLOGY REPORT (SQ) ---
EXAM DESCRIPTION: CHEST SINGLE VIEW COMPLETED DATE/TIME: 08/15/2018 5:55 pm REASON FOR STUDY: post intubation COMPARISON: 06/29/2016 EXAM PARAMETERS: NUMBER OF VIEWS: One view. TECHNIQUE: Single frontal radiographic view of the chest acquired. RADIATION DOSE: NA LIMITATIONS: None. FINDINGS: LUNGS AND PLEURA: Endotracheal tube NG tube have been placed. Both are in satisfactory po sition. Lung arrington are clear. MEDIASTINUM AND HILAR STRUCTURES: No masses. Contour normal. HEART AND VASCULAR STRUCTURES: Heart normal in size. Normal vasculature. BONES: No acute findings. HARDWARE: None in the chest. OTHER: No other significant finding. IMPRESSION: Support lines and tubes are in satisfactory position. Lung arrington are clear. TECHNICAL DOCUMENTATION: JOB ID: [id number] [employer]- All Rights Reserved Reading location - IP/workstation name: [email or web address]
--- NOTE | 2018-08-15 18:06 | RADIOLOGY REPORT (SQ) ---
EXAM DESCRIPTION: KUB/ABDOMEN (SINGLE VIEW) COMPLETED DATE/TIME: 08/15/2018 5:55 pm REASON FOR STUDY: OG TUBE PLACEMENT COMPARISON: None. NUMBER OF VIEWS: One view. TECHNIQUE: Supine radiographic image of the abdomen acquired. LIMITATIONS: None. FINDINGS: BOWEL GAS PATTERN: Normal bowel gas pattern. No dilated loops. CALCIFICATIONS: No suspicious calcifications. SOFT TISSUES: No gross mass or suggestion of organomegaly. HARDWARE: An oral gastric tube extends to the greater curvature of the stomach. The side hole is wit hin the stomach. Inferior vena cava filter. Lower lumbar hardware. BONES: No acute fracture. No worrisome bone lesions. OTHER: No other significant finding. IMPRESSION: Oral gastric tube placement as described. TECHNICAL DOCUMENTATION: JOB ID: [id number] [employer]- All Rights Reserved Reading location - IP/workstation name: [email or web address]
[2018-08-15 18:07] LABS: ALANINE AMINOTRANSFERASE 16 U/L (9-52); ALBUMIN 3.4 g/dL (3.5-5.0); ALKALINE PHOSPHATASE 94 U/L (38-126); ASPARTATE AMINO TRANSFERASE 93 U/L (14-36); BILIRUBIN,DIRECT 1.4 mg/dL (0.0-0.4); BILIRUBIN,TOTAL 3.6 mg/dL (0.2-1.3); BLOOD UREA NITROGEN 22 mg/dL (7-20); CALCIUM 8.4 mg/dL (8.4-10.2); CHLORIDE 99 mmol/L (98-107); GLUCOSE 97 mg/dL (75-110); POTASSIUM 3.3 mmol/L (3.6-5.0); TOTAL PROTEIN 8.1 g/dL (6.3-8.2)
[2018-08-15 18:13] LABS: CARBON DIOXIDE 16 mmol/L (22-30)
[2018-08-15 18:15] LABS: ANION GAP 20 (5-19)
[2018-08-15 18:39] LABS: APPEARANCE,URINE CLEAR; BILIRUBIN,URINE NEGATIVE (NEGATIVE); GLUCOSE, URINE NEGATIVE (NEGATIVE); KETONES,URINE TRACE mg/dL (NEGATIVE); LEUKOCYTE ESTERASE,URINE NEGATIVE (NEGATIVE); NITRITE,URINE NEGATIVE (NEGATIVE); PROTEIN,URINE NEGATIVE (NEGATIVE); URINE SPECIFIC GRAVITY 1.023
[2018-08-15 18:42] LABS: COLOR,URINE YELLOW
[2018-08-15 21:20] VITALS: BP 122/53
--- NOTE | 2018-08-15 22:40 | EKG REPORT ---
SEVERITY:- ABNORMAL ECG - SINUS RHYTHM NONSPECIFIC T ABNORMALITIES, LATERAL LEADS PROLONGED QT INTERVAL : Confirmed by: Lizzette Liang 15-Aug-2018 22:40:22
== END 2018-08-15 21:21 | disposition short-term general hospital (02) ==
LOC: ER 17:17
DX: J96.00 Acute respiratory failure, unspecified whether with hypoxia or hypercapnia (principal); G40.901 Epilepsy, unspecified, not intractable, with status epilepticus; E87.2 Acidosis; E72.20 Disorder of urea cycle metabolism, unspecified; Z79.899 Other long term (current) drug therapy; I10 Essential (primary) hypertension
CPT/HCPCS: 93005; 99291; 99292; 96360; 36415; 87086; 82140; 85025; 85610; 85730; 80053; 81001; 84484; 83605; 71045; 74018; 70450; 94660; 93010; J3490; J2704; J7030